=== PATIENT | female | born 2000 | race Caucasian/White ===

== ENCOUNTER 2021-01-16 18:26 | Observation (INO) | payer MEDICAID ==
[2021-01-16 21:12] LABS: HEMOGLOBIN 12.6 gm/dl (12.3-15.3); RED BLOOD COUNT 4.42 M/UL (4.00-5.10); WHITE BLOOD COUNT 19.3 K/UL (4.5-11.0)
[2021-01-16 21:40] LABS: BUN/CREATININE RATIO 11 (0-10)
== END 2021-01-18 13:22 | disposition home or self-care (01) ==
LOC: GENOP 18:26 → OB 22:25
PROVIDERS: Obstetrics & Gynecology; ADMIT Obstetrics & Gynecology
DX: O23.02 Infections of kidney in pregnancy, second trimester (principal); O23.12 Infections of bladder in pregnancy, second trimester; O99.891 Other specified diseases and conditions complicating pregnancy; R00.0 Tachycardia, unspecified; O99.342 Other mental disorders complicating pregnancy, second trimester; F41.9 Anxiety disorder, unspecified; Z98.890 Other specified postprocedural states; Z3A.23 23 weeks gestation of pregnancy; Z20.822 Contact with and (suspected) exposure to COVID-19
CPT/HCPCS: ECHO; 71045; 80053; 81001; 82150; 83690; 83880; 84439; 84443; 84484; 85025; 93005; 93306; 96361; 96367; 96374; 96375; 96376; G0378; J0595; J0696; J7050; J7120; U0002

== ENCOUNTER 2021-05-08 16:37 | Inpatient (IN) | payer OTHER ==
[~2021-05-08] VITALS: Ht 165.1 cm; Wt 75.3 kg
[2021-05-08 17:20] LABS: HEMOGLOBIN 10.1 gm/dl (12.3-15.3); RED BLOOD COUNT 4.31 M/UL (4.00-5.10)
[2021-05-08] MEDS ORDERED: PRENATAL VITAM1 EAC6 PO (17:26)
[2021-05-10 07:51] LABS: HEMOGLOBIN 8.8 gm/dl (12.3-15.3)
[2021-05-12] MEDS ORDERED: HYDROCODON-ACE1 EAC6 PO (08:48)
[2021-05-12] MEDS ORDERED: COLACE 100MG C100 MG PO (08:48)
[2021-05-12] MEDS ORDERED: IBUPROFEN600 MG PO (08:48)
== END 2021-05-12 13:31 | disposition home or self-care (01) | DRG 786 ==
LOC: GENOP 16:37 → OB 16:58
PROVIDERS: Obstetrics & Gynecology; ADMIT Obstetrics & Gynecology
PROC: 10907ZC Drainage of Amniotic Fluid, Therapeutic from Products of Conception, Via Natural or Artificial Opening (ICD-10-PCS; 2021-05-09)
PROC: 10H07YZ Insertion of Other Device into Products of Conception, Via Natural or Artificial Opening (ICD-10-PCS; 2021-05-09)
PROC: 3E033VJ Introduction of Other Hormone into Peripheral Vein, Percutaneous Approach (ICD-10-PCS; 2021-05-09)
PROC: 10D00Z1 Extraction of Products of Conception, Low, Open Approach (ICD-10-PCS; principal; 2021-05-09 19:26)
DX: O76 Abnormality in fetal heart rate and rhythm complicating labor and delivery (principal); O75.3 Other infection during labor; O99.42 Diseases of the circulatory system complicating childbirth; N39.0 Urinary tract infection, site not specified; I34.1 Nonrheumatic mitral (valve) prolapse; Z37.0 Single live birth; Z3A.39 39 weeks gestation of pregnancy; Z90.89 Acquired absence of other organs
CPT/HCPCS: 81001; 82800; 85014; 85018; 85025; 90715; C9113; J0456; J0690; J1885; J2001; J2274; J2300; J2405; J2590; J2795; J7030; J7120; U0003